=== PATIENT | female | born 1965 | race American Indian/Alaskan Native ===

== ENCOUNTER 2024-11-15 16:36 | Inpatient (IN) | payer BC ==
[2024-11-15] MEDS: Sodium Chloride 0.9% 1,000 ML IV SCH (16:50)
[2024-11-15] MEDS ORDERED: Sodium Chloride 0.9% 10 ML Syringe FLUSH PRN (17:04)
[2024-11-15 17:10] LABS: HEMATOCRIT 49.4 % (37.0-47.0); HEMOGLOBIN 17.1 g/dL (11.5-16.5); MEAN CORPUSCULAR HEMOGLOBIN 29.7 pg (27.0-32.0); MEAN CORPUSCULAR HGB CONC 34.6 g/dL (31.0-35.0); MEAN PLATELET VOLUME 10.2 fL (6.0-10.0); RED BLOOD CELL COUNT 5.76 M/uL (3.80-5.80)
[2024-11-15] MEDS: Pantoprazole 40 MG Vial IVPUSH ONE (17:15)
[2024-11-15] MEDS: Ondansetron 4 MG/2 ML SDV IVPUSH ONE ×2 (17:15→18:17)
[2024-11-15 17:22] LABS: A/G RATIO 0.9 (0.8-2.0); ALBUMIN 4.2 g/dL (3.4-5.0); ANION GAP 14.6 mmol/L (5.0-15.0); BUN/CREATININE RATIO 24.3 (6-25); C-REACTIVE PROTEIN 11.2 mg/L (<5.0); CALCIUM 10.1 mg/dL (8.5-10.1); CARBON DIOXIDE,CO2 28.3 mmol/L (21.0-32.0); CREATININE 0.7 mg/dL (0.55-1.02); EST CRCL DRUG DOSING (CG) 72.88 mL/min; MAGNESIUM 2.1 mg/dL (1.8-2.4); POTASSIUM,K 3.9 mmol/L (3.5-5.1); PROTEIN TOTAL,TP 8.8 g/dL (6.4-8.2)
[2024-11-15 17:25] LABS: LACTIC ACID 1.3 mmol/L (0.4-2.0)
[2024-11-15 17:52] LABS: APPEARANCE,URINE CLEAR (CLEAR); COLOR,URINE YELLOW
[2024-11-15 17:53] LABS: BILIRUBIN,URINE NEGATIVE (NEGATIVE); GLUCOSE,URINE NEGATIVE (NEGATIVE); KETONES,URINE 15 mg/dL (NEGATIVE); LEUKOCYTE ESTERASE,URINE NEGATIVE (NEGATIVE); NITRITE,URINE NEGATIVE (NEGATIVE); OCCULT BLOOD,URINE TRACE-INTACT (NEGATIVE); PROTEIN,URINE NEGATIVE (NEGATIVE); UROBILINOGEN,URINE 0.2 E.U./dL (0.2-1.0)
[2024-11-15 17:54] LABS: BACTERIA,URINE FEW /HPF; RBC,URINE 0-5 /HPF; SQUAMOUS EPITHELIAL CELLS,UR FEW /HPF
[2024-11-15] MEDS: Lactated Ringers 1,000 ML IV SCH (18:13)
[2024-11-15] MEDS: Morphine 4 MG/ML VIAL IVPUSH ONE (18:22)
[2024-11-15] MEDS: Iopamidol 612 MG/ML 100 ML Bottle IV SCH (18:38)
[2024-11-15] MEDS: Sodium Chloride 0.9% 50 ML SDV FLUSH ONE (18:38)
[2024-11-15] MEDS: LORazepam 2 MG/ML SDV IVPUSH ONE (20:49)
[2024-11-15] MEDS: Lidocaine 2% Jelly 5 ML Urojet ONE (20:50)
[2024-11-15] MEDS ORDERED: Dextrose 5%-0.9% NaCl with KCl 1,000 ML IV SCH (22:00)
[2024-11-15] MEDS: Ketorolac 15 MG/ML SDV IVPUSH ONE (22:08)
[2024-11-15] MEDS: Heparin Sodium 5,000 Units/ML Vial SUBCUT SCH (22:12)
[2024-11-15] MEDS: Lidocaine 2% Jelly 10 ML Urojet MUCMEM ONE (22:36)
[2024-11-15] MEDS: Dextrose 5%-0.9% NaCl 1,000 ML IV SCH (23:00)
[2024-11-15] MEDS: Potassium Chloride Riders 50 ML IV SCH (23:01)
[2024-11-16] MEDS: Morphine 4 MG/ML VIAL IVPUSH PRN (02:45)
[2024-11-16] MEDS: Pantoprazole 40 MG Vial IVPUSH SCH (08:13)
[2024-11-16] MEDS: Ketorolac 15 MG/ML SDV IVPUSH PRN (09:09)
[2024-11-16 09:30] LABS: BASOPHILS ABSOLUTE AUTO 0.02 K/uL (0.02-0.10); BASOPHILS PERCENT AUTO 0.3 % (0.0-0.5); EOSINOPHILS ABSOLUTE AUTO 0.16 K/uL (0.04-0.40); EOSINOPHILS PERCENT AUTO 2.2 % (1.0-5.0); HEMATOCRIT 40.3 % (37.0-47.0); HEMOGLOBIN 13.5 g/dL (11.5-16.5); LYMPHOCYTES PERCENT AUTO 22.3 % (20.0-40.0); MEAN CORPUSCULAR HEMOGLOBIN 29.5 pg (27.0-32.0); MEAN CORPUSCULAR HGB CONC 33.5 g/dL (31.0-35.0); MEAN CORPUSCULAR VOLUME 88 fL (76-96); MEAN PLATELET VOLUME 9.6 fL (6.0-10.0); MONOCYTES ABSOLUTE AUTO 0.64 K/uL (0.20-0.80); MONOCYTES PERCENT AUTO 8.9 % (3.0-10.0); NEUTROPHILS ABSOLUTE AUTO 4.75 K/uL (2.00-7.50); NEUTROPHILS PERCENT AUTO 66.3 % (45.0-70.0); PLATELET COUNT,PLT 225 K/uL (150-500); RED BLOOD CELL COUNT 4.58 M/uL (3.80-5.80); RED CELL DISTRIBUTION WIDTH 13.7 % (11.0-16.0); WHITE BLOOD CELL COUNT,WBC 7.2 K/uL (4.0-11.0)
[2024-11-16 10:13] LABS: A/G RATIO 0.9 (0.8-2.0); ALBUMIN 2.8 g/dL (3.4-5.0); ANION GAP 11.3 mmol/L (5.0-15.0); BUN/CREATININE RATIO 25.5 (6-25); CALCIUM 8.1 mg/dL (8.5-10.1); CARBON DIOXIDE,CO2 27.6 mmol/L (21.0-32.0); CREATININE 0.55 mg/dL (0.55-1.02); EST CRCL DRUG DOSING (CG) 92.75 mL/min; POTASSIUM,K 3.9 mmol/L (3.5-5.1)
[2024-11-16 10:14] LABS: BILIRUBIN TOTAL 0.7 mg/dL (0.0-1.0)
[2024-11-16 10:34] LABS: APPEARANCE,URINE CLOUDY (CLEAR); COLOR,URINE YELLOW
[2024-11-16 10:35] LABS: BILIRUBIN,URINE NEGATIVE (NEGATIVE); GLUCOSE,URINE NEGATIVE (NEGATIVE); KETONES,URINE NEGATIVE (NEGATIVE); LEUKOCYTE ESTERASE,URINE NEGATIVE (NEGATIVE); NITRITE,URINE NEGATIVE (NEGATIVE); OCCULT BLOOD,URINE NEGATIVE (NEGATIVE); PROTEIN,URINE NEGATIVE (NEGATIVE); RBC,URINE 0-5 /HPF; SQUAMOUS EPITHELIAL CELLS,UR FEW /HPF; UROBILINOGEN,URINE 0.2 E.U./dL (0.2-1.0); WBC,URINE 0-5 /HPF
[2024-11-16 10:36] LABS: AMORPHOUS SEDIMENT,URINE FEW /HPF
[2024-11-16] MEDS: Ondansetron 4 MG/2 ML SDV IVPUSH PRN (21:12)
[2024-11-17] MEDS: Sodium Phosphate,Monobasic/Sodium Phosphate,Dibasic Enema 133 ML Bottle RECTAL ONE (07:36)
[2024-11-17 08:19] LABS: BASOPHILS ABSOLUTE AUTO 0.02 K/uL (0.02-0.10); BASOPHILS PERCENT AUTO 0.3 % (0.0-0.5); EOSINOPHILS ABSOLUTE AUTO 0.24 K/uL (0.04-0.40); EOSINOPHILS PERCENT AUTO 3.2 % (1.0-5.0); HEMATOCRIT 43.6 % (37.0-47.0); HEMOGLOBIN 14.7 g/dL (11.5-16.5); LYMPHOCYTES ABSOLUTE AUTO 1.21 K/uL (1.50-4.00); LYMPHOCYTES PERCENT AUTO 16.1 % (20.0-40.0); MEAN CORPUSCULAR HEMOGLOBIN 29.8 pg (27.0-32.0); MEAN CORPUSCULAR HGB CONC 33.7 g/dL (31.0-35.0); MEAN CORPUSCULAR VOLUME 88 fL (76-96); MEAN PLATELET VOLUME 9.7 fL (6.0-10.0); MONOCYTES ABSOLUTE AUTO 0.64 K/uL (0.20-0.80); MONOCYTES PERCENT AUTO 8.5 % (3.0-10.0); NEUTROPHILS ABSOLUTE AUTO 5.41 K/uL (2.00-7.50); NEUTROPHILS PERCENT AUTO 71.9 % (45.0-70.0); PLATELET COUNT,PLT 225 K/uL (150-500); RED BLOOD CELL COUNT 4.94 M/uL (3.80-5.80); RED CELL DISTRIBUTION WIDTH 13.8 % (11.0-16.0); WHITE BLOOD CELL COUNT,WBC 7.5 K/uL (4.0-11.0)
[2024-11-17 08:37] LABS: A/G RATIO 0.9 (0.8-2.0); ALBUMIN 3.3 g/dL (3.4-5.0); ANION GAP 12.9 mmol/L (5.0-15.0); BILIRUBIN TOTAL 0.7 mg/dL (0.0-1.0); BUN/CREATININE RATIO 15.3 (6-25); CALCIUM 8.3 mg/dL (8.5-10.1); CARBON DIOXIDE,CO2 28.7 mmol/L (21.0-32.0); CREATININE 0.72 mg/dL (0.55-1.02); EST CRCL DRUG DOSING (CG) 70.85 mL/min; POTASSIUM,K 3.6 mmol/L (3.5-5.1); PROTEIN TOTAL,TP 6.9 g/dL (6.4-8.2)
[2024-11-17] MEDS: Ketorolac 15 MG/ML SDV IVPUSH PRN (08:57)
[2024-11-17] MEDS: Magnesium Citrate Solution 296 ML Bottle NGTUBE ONE (11:05)
[2024-11-17] MEDS: LORazepam 2 MG/ML SDV IVPUSH ONE (17:10)
== END 2024-11-17 18:34 | DRG 247 ==
LOC: LB.ED 16:36 → LB.MS 21:39
PROVIDERS: ADMIT Surgery; ATTEND Surgery
PROC: 0D9770Z Drainage of Stomach, Pylorus with Drainage Device, Via Natural or Artificial Opening (ICD-10-PCS; principal; 2024-11-15)
DX: K56.609 Unspecified intestinal obstruction, unspecified as to partial versus complete obstruction (principal); E86.0 Dehydration; Z66 Do not resuscitate; Z88.0 Allergy status to penicillin; Z79.899 Other long term (current) drug therapy; Z88.8 Allergy status to other drugs, medicaments and biological substances
CPT/HCPCS: 36415; 43752; 71045; 74019; 74177; 80053; 81001; 83605; 83690; 83735; 85025; 85027; 86140; 96361; 96374; 96375; 96376; 99223; 99232; 99238; 99285-25; A9270-GY; J1885; J2060; J2270; J2405; J2470; J3480; J3490; J7030; J7120; Q9967